=== PATIENT | female | born 1970 ===

== ENCOUNTER 2016-10-30 16:22 | Emergency (ER) | payer MEDICAID ==
[2016-10-30] MEDS ORDERED: Sodium Chloride 0.9% 1,000 ML IV ONE (17:09)
[2016-10-30 17:53] LABS: BASO # 0.1 K/uL (0.0-0.2); BASO % 0.6 % (0.0-2.0); EOS # 0.1 K/uL (0.0-0.7); EOS % 1.5 % (0.0-4.0); HEMATOCRIT 29.3 % (34.0-47.0); LYMPH % 23.3 % (20.0-40.0); MEAN CELL VOLUME 83.2 fl (81.0-99.0); MEAN CORPUSCULAR HEMOGLOBIN 26.8 pg (27.0-31.0); MEAN CORPUSCULAR HGB CONC 32.2 g/dL (33.0-37.0); MEAN PLATELET VOLUME 7.5 fl (7.2-11.7); MONO # 0.6 K/uL (0.0-0.8); MONO % 6.7 % (0.0-10.0); NEUT # 5.7 K/uL (1.8-7.0); NEUT % 67.9 % (50.0-75.0); RED CELL DISTRIBUTION WIDTH 15.2 % (11.5-14.5); WHITE BLOOD COUNT 8.4 K/uL (4.8-10.8)
[2016-10-30 18:02] LABS: ALB/GLOB RATIO 1.2 (1.0-2.1); ALKALINE PHOSPHATASE 85 U/L (38-126); ALT/SGPT 49 U/L (9-52); AST/SGOT 30 U/L (14-36); BILIRUBIN,TOTAL 0.1 mg/dl (0.2-1.3); BLOOD UREA NITROGEN 9 mg/dl (7-17); CALCIUM 8.4 mg/dL (8.4-10.2); CARBON DIOXIDE 22 mmol/L (22-30); CHLORIDE 106 mmol/L (98-107); GFR AFRICAN-AMERICAN > 60; GLUCOSE,RANDOM 96 mg/dL (65-105); LIPASE 224 U/L (23-300); POTASSIUM 3.8 MMOL/L (3.6-5.0); SODIUM 137 mmol/l (132-148); TOTAL PROTEIN 7.2 G/DL (6.3-8.2)
[2016-10-30] MEDS ORDERED: Sodium Chloride 0.9% 50 ML IV ONE (18:17)
[2016-10-30] MEDS ORDERED: Iohexol 300 100 ML IJ ONE (18:17)
[2016-10-30 18:19] LABS: RBC URINE 1455 /hpf (0-3); URINE BILIRUBIN NEGATIVE (NEGATIVE); URINE BLOOD LARGE (NEGATIVE); URINE COLOR RED (YELLOW); URINE GLUCOSE (UA) NEG (Normal); URINE KETONE NEGATIVE (NEGATIVE); URINE LEUKOCYTE ESTERASE MOD Leu/uL (Negative); URINE PROTEIN 30 mg/dL (NEGATIVE); URINE UROBILINOGEN 0.2-1.0 mg/dL (0.2-1.0); WBC URINE 54 /hpf (0-5)
[2016-10-30 18:44] LABS: PARTIAL THROMBOPLASTIN TIME 24.6 SECONDS (23.3-32.5)
[2016-10-30] MEDS ORDERED: cefTRIAXone (Rocephin) 1 gm Inj ONE (18:49)
--- NOTE | 2016-10-30 19:17 | CT ---
EXAM: CT Abdomen and Pelvis With Intravenous Contrast CLINICAL HISTORY: 46 years old, female; Signs and symptoms; Other: Abd pain vaginal bleeding x around 1 month; Prior surgery; Surgery date: 6+ months; Surgery type: B/l breast implant/ abdominoplasty 5 yrs ago. x 2001 2011; Additional info: Abd pain, diarrhea, recent travel to [place] TECHNIQUE: Axial computed tomography images of the abdomen and pelvis with intravenous contrast. This CT exam was performed using one or more of the following dose reduction techniques: automated exposure control, adjustment of the mA and/or kV according to patient size, and/or use of iterative reconstruction technique. Coronal and sagittal reformatted images were created and reviewed. CONTRAST: 98 mL of OMNIPAQUE administered intravenously. EXAM DATE/TIME: 10/30/2016 5:06 PM COMPARISON: There are no prior studies for comparison. FINDINGS: Lower thorax: There are bilateral breast implants. Heart size is normal. There are atelectatic changes in both lung bases. ABDOMEN: Liver: There is fatty infiltration of the liver. Gallbladder and bile ducts: unremarkable Pancreas: unremarkable Spleen: Spleen is unremarkable. There is an accessory spleen in the left upper quadrant. Adrenals: unremarkable Kidneys and ureters: unremarkable Stomach and bowel: Stomach is distended with food. Rotation is normal. Proximal small bowel is mildly distended. Distention decreases distally. There is fluid and air throughout the small bowel. Terminal ileum is unremarkable. Appendix is unremarkable. There is moderate enteric contents throughout the colon. There is scattered diverticulosis. Appendix: See stomach and bowel PELVIS: Bladder: unremarkable Reproductive: Uterus is enlarged. There is a heterogeneously enhancing 4.9 x 4.4 cm in fundal mass. Adnexa are unremarkable. ABDOMEN and PELVIS: Intraperitoneal space: There is no free air or free fluid. Bones/joints: There is sclerosis at the sacroiliac joints. There is sacralization of L5 on the left. There are early degenerative osseous changes. Soft tissues: Postsurgical changes in the abdominal wall. Vasculature: Vascular structures are unremarkable. Lymph nodes: There is shotty para-aortic nodes. IMPRESSION: No acute solid visceral abnormality; no bowel obstruction, no CT findings of appendicitis or diverticulitis; probable uterine fibroid Additional findings as described above.
--- NOTE | 2016-10-30 20:04 | ED PDOC ---
HPI: Female Pain Time Seen by Provider: 10/30/16 16:36 Chief Complaint (Nursing): Female Genitourinary History Per: Patient History/Exam Limitations: no limitations Additional Complaint(s): Patient presents to the ER c/o 40 days of heavy vaginal bleeding. States that for the past 2 days she has been using 2 pads/hr. She states that she saw her brazer furnace 2 weeks ago, was rx Tayo OCP with no relief, had an outpt pelvis US yesterday, but does not know the results. Reports having normal menstrual cycle lasting for 3-4days, has never had to following symptoms prior. She is currently c/o feeling weak and dizzy. She also reports diffuse burning like abdominal pain with multiple episodes of nonbloody diarrhea after she returned form a trip to [place]. Denies fever, chills, N/V, recent abx use, sick contacts , urinary symptoms. 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 Past Medical History Vital Signs: Last Vital Signs Temp 98.4 F 10/30/16 16:26 Pulse 85 10/30/16 16:26 Resp 18 10/30/16 16:26 BP 135/61 10/30/16 16:26 Pulse Ox 99 10/30/16 16:26 - Medical History PMH: No Chronic Diseases - Family History Family History: States: No Known Family Hx - Home Medications Home Medications: Ambulatory Orders Medication Instructions Recorded Ciprofloxacin HCl [Cipro] 500 mg PO BID #14 tab 10/30/16 - Allergies Allergies/Adverse Reactions: Allergies Allergy/AdvReac Type Severity Reaction Status Date / Time No Known Allergies Allergy Verified 10/30/16 16:26 Review of Systems Constitutional: Negative for: Fever, Chills, Weakness, Malaise Eyes: Negative for: Pain, Vision Change ENT: Negative for: Ear Pain, Nose Congestion, Throat Pain Cardiovascular: Negative for: Chest Pain, Palpitations, Orthopnea, Edema Respiratory: Negative for: Cough, Shortness of Breath Gastrointestinal: Positive for: Abdominal Pain, Diarrhea. Negative for: Nausea , Vomiting Genitourinary Female: Positive for: Vaginal Bleeding. Negative for: Dysuria, Frequency, Incontinence, Hematuria Musculoskeletal: Negative for: Neck Pain, Back Pain Skin: Negative for: Rash, Lesions, Jaundice Neurological: Negative for: Weakness, Numbness, Incoordination Psych: Negative for: Anxiety, Depression, Psychosis Physical Exam - Physical Exam Appears: Positive for: Well, Non-toxic, In Acute Distress (mild distress) Head Exam: Positive for: ATRAUMATIC, NORMOCEPHALIC Skin: Positive for: Normal Color, Warm, Dry ENT: Positive for: Normal ENT Inspection, Other (mucus membranes dry). Negative for: Pharyngeal Erythema, Tonsillar Exudate Neck: Positive for: Normal, Supple Cardiovascular/Chest: Positive for: Regular Rate, Rhythm, Chest Non Tender. Negative for: Edema, Gallop, JVD, Murmur Respiratory: Positive for: Normal Breath Sounds. Negative for: Decreased Breath Sounds, Accessory Muscle Use, Crackles, Rales, Rhonchi, Stridor, Wheezing Gastrointestinal/Abdominal: Positive for: Normal Exam, Bowel Sounds, Soft, Tenderness (mild lower abdominal tenderness). Negative for: Organomegaly, Mass , Distended, Guarding, Rebound Pelvic Exam: Positive for: External Exam Normal, Bimanual Exam Normal, Active Bleeding (mild ), Other (enlarged uterus on manual exam. Xuan, female technology consultant was present during the entire exam. ). Negative for: Tender W/Cervical Motion, Tender Adnexa, Tender Uterus Extremity: Positive for: Normal ROM. 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 Negative for: Motor/Sensory Deficits - Laboratory Results Result Diagrams: 10/30/16 17:35 10/30/16 17:35 - ECG O2 Sat by Pulse Oximetry: 99 Medical Decision Making Medical Decision Makin yo F presents with DUB, abdominal pain and diarrhea. Plan -Labs -US pelvic -CT A/P w/ IV contrast -UA -Stool cx, C diff -IVF -zofran and pepcid. Lab results reviewed, Hgb 9.4 Hct 29. Patient has no prior labs here in this hospital to compare to. UA noted to have (+) UTI. Rocephin 1 g IV ordered. US and CT results still pending. Patient laying in bed comfortably in no acute distress. US pelvic : FINDINGS: Uterus/cervix: Uterus measures 10.3 x 6.3 x 6.4 cm. Nabothian cysts. There is a 4.6 x 4.3 x 3.7 cm hyperechoic mass in the posterior uterine fundal myometrium with vascular flow which may be partially submucosal. Endometrium measures 6.2 mm. Right ovary: Right ovary measures 2.3 x 1.5 x 1.9 cm. Probable incidental corpus albicans Normal blood flow. Left ovary: Left ovary measures 1.3 x 1.6 x 1.4 cm. Follicles. Normal blood flow. Free fluid: No free fluid. IMPRESSION: Large posterior intramural fibroid which may be partially submucosal. 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 Dictated and Authenticated by: Marta Palma MD CT A/P w/ IV contrast: FINDINGS: Lower thorax: There are bilateral breast implants. Heart size is normal. There are atelectatic changes in both lung bases. ABDOMEN: Liver: There is fatty infiltration of the liver. Gallbladder and bile ducts: unremarkable Pancreas: unremarkable Spleen: Spleen is unremarkable. There is an accessory spleen in the left upper quadrant. Adrenals: unremarkable Kidneys and ureters: unremarkable Stomach and bowel: Stomach is distended with food. Rotation is normal. Proximal small bowel is mildly distended. Distention decreases distally. There is fluid and air throughout the small bowel. Terminal ileum is unremarkable. Appendix is unremarkable. There is moderate enteric contents throughout the colon. There is scattered diverticulosis. Appendix: See stomach and bowel PELVIS: Bladder: unremarkable Reproductive: Uterus is enlarged. There is a heterogeneously enhancing 4.9 x 4.4 cm in fundal mass. Adnexa are unremarkable. ABDOMEN and PELVIS: Intraperitoneal space: There is no free air or free fluid. Bones/joints: There is sclerosis at the sacroiliac joints. There is sacralization of L5 on the left. There are early degenerative osseous changes. Soft tissues: Postsurgical changes in the abdominal wall. Vasculature: Vascular structures are unremarkable. Lymph nodes: There is shotty para-aortic nodes. IMPRESSION: No acute solid visceral abnormality; no bowel obstruction, no CT findings of appendicitis or diverticulitis; probable uterine fibroid Additional findings as described above. Dictated By: Aniya Roche MD, MD Dictated Date/Time: 10/30/161916 Signed By: Aniya Roche MD Date Signed: 1916 On re-evaluation, patient remains awake, alert and oriented x3, in no acute distress. States that she feels well, and has no complaints at this time. Denies fever, chills, abdominal pain, nausea/vomiting, significant vaginal bleeding or any other complaints. On exam, patient is laying in bed in no acute distress. Abdomen remains soft with no tenderness. Results d/w the patient in great detail. Notified of her low Hgb, advised that she must f/u results with her pmd/brazer furnace. Based on history, exam and diagnostic studies, plan will be for outpatient f/u with pmd/brazer furnace. Patient verbalize understanding of the need for further outpatient care and follow up treatment. The patient was given the opportunity to ask any questions. Follow up with pmd/brazer furnace in 2 days without fail for re-evaluation. Return to the ER at any time for any new or worsening symptoms. Disposition - Clinical Impression Clinical Impression: DUB (dysfunctional uterine bleeding), Abdominal pain, Travelers' diarrhea - Disposition Disposition: Routine/Home Disposition Time: 20:22 Condition: STABLE Additional Instructions: Follow up with pmd/brazer furnace in 2 days without fail for re-evaluation. Return to the ER at any time for any new or worsening symptoms. Prescriptions: Ciprofloxacin HCl [Cipro] 500 mg PO BID #14 tab Instructions: Dysfunctional Uterine Bleeding (ED), Traveler's Diarrhea (ED), Abdominal Pain (ED) Forms: [facility] ED School/Work Excuse Print Language: SURINAMESE - PA / PEPPER PICKER / Resident Statement / has reviewed & agrees with the documentation as recorded.
[2016-10-30 20:33] VITALS: BP 125/80; PULSE 75; RESP 16; TEMP 97.9
[2016-10-31 09:56] VITALS: O2SAT 99
--- NOTE | 2016-10-31 10:31 | US ---
HISTORY: vag bleed x 40 days on OCP x 2 weeks COMPARISON: CT abdomen and pelvis with IV contrast performed 10/30/16. No prior ultrasound available for direct comparison. TECHNIQUE: Pelvis ultrasound FINDINGS: UTERUS: Measures 10.3 x 6.4 x 6.3 cm. Anteverted. Heterogeneous uterine echotexture limits evaluation for small masses or fibroids. 4.6 x 3.7 x 4.3 cm posterior fibroid. ENDOMETRIUM: Measures 5 mm in diameter. CERVIX: Nabothian cyst. RIGHT OVARY: Measures 2.3 x 1.9 x 1.5 cm. Blood flow is demonstrated. 5 x 4 x 3 mm indeterminate echogenic focus. LEFT OVARY: Measures 1.3 x 1.4 x 1.6 cm cm. Blood flow is demonstrated. FREE FLUID: No significant free fluid noted. OTHER FINDINGS: None. IMPRESSION: 4.6 cm posterior uterine fibroid. Indeterminate 5 x 4 x 3 mm echogenic focus within the left ovary. Preliminary impression was provided by virtual radiologic.
== END 2016-10-30 20:34 | disposition home or self-care (01) ==
LOC: H.ER 16:22
DX: R10.9 Unspecified abdominal pain (principal); R19.7 Diarrhea, unspecified; Z98.82 Breast implant status; R42 Dizziness and giddiness

== ENCOUNTER 2017-07-25 11:25 | Emergency (ER) | payer MEDICAID ==
[2017-07-25 11:44] VITALS: BP 136/73; PULSE 81; RESP 18; TEMP 99; O2SAT 96
[2017-07-25] MEDS ORDERED: Albuterol-Ipratrop 3 mg / 0.5 (3 ml) UD INH STA (12:34)
--- NOTE | 2017-07-25 12:59 | ED PDOC ---
HPI: CCC, URI, Sore Throat Time Seen by Provider: 07/25/17 11:25 Chief Complaint (Nursing): Cough, Cold, Congestion Chief Complaint (Provider): Cough, Cold, Congestion History Per: Patient History/Exam Limitations: no limitations Onset/Duration Of Symptoms: Days (x2) Current Symptoms Are (Timing): Still Present Sick Contacts (Context): Family Member(s) (son) Additional Complaint(s): 46 year old female who presents to the emergency department with a complaint of flu-like symptoms including cough, bodyaches, pleuritic chest pain, wheezing at night and fever ongoing for 2 days. Patient reported she had a recent sick contact with one of her son 4 days ago. PMD: none provided Past Medical History Reviewed: Historical Data, Nursing Documentation, Vital Signs Vital Signs: Last Vital Signs Temp 99 F 07/25/17 11:42 Pulse 81 07/25/17 11:42 Resp 18 07/25/17 11:42 BP 136/73 07/25/17 11:42 Pulse Ox 96 07/25/17 13:37 - Medical History PMH: No Chronic Diseases - Surgical History Surgical History: Denies: No Surg Hx Other surgeries: breast augmentation; abdominoplasty - Family History Family History: States: Unknown Family Hx - Social History Current smoker - smoking cessation education provided: No Alcohol: Occasional Drugs: Denies - Home Medications Home Medications: Ambulatory Orders Medication Instructions Recorded Ciprofloxacin HCl [Cipro] 500 mg PO BID #14 tab 10/30/16 Acetaminophen [Acetaminophen Extra 2 tab PO Q6 PRN #24 tablet 07/25/17 Strength] Albuterol 0.083% [Albuterol 0.083% 2.5 mg IH Q8 PRN #100 neb 07/25/17 Inhal Bridget (2.5 mg/3 ml) UD] Ibuprofen [Motrin] 600 mg PO Q8 PRN #21 tab 07/25/17 Mask, Face [Nebulizer Aerosol Mask 1 dev XX PRN PRN #1 dev 07/25/17 Adult] Nebulizer [Aeroeclipse II] 1 each MC Q8 PRN #1 each 07/25/17 Promethazine/Codeine 5 ml PO Q12 PRN #100 ml 07/25/17 [Codeine/Promethazine 10 MG/5 Ml-6.25 MG/5 Ml] Pseudoephedrine [Sudafed Tab] 60 mg PO Q6 PRN #24 tab 07/25/17 - Allergies Allergies/Adverse Reactions: Allergies Allergy/AdvReac Type Severity Reaction Status Date / Time No Known Allergies Allergy Verified 10/30/16 16:26 Review of Systems ROS Statement: Except As Marked, All Systems Reviewed And Found Negative Constitutional: Positive for: Fever, Other (bodyaches) Cardiovascular: Positive for: Chest Pain (pleuritic) Respiratory: Positive for: Cough, Wheezing Physical Exam - Reviewed Nursing Documentation Reviewed: Yes Vital Signs Reviewed: Yes - Physical Exam Appears: Positive for: Non-toxic, No Acute Distress ENT: Positive for: Normal ENT Inspection, Pharynx Is (within normal limits), TM Is/Are (clear bilaterally). Negative for: Pharyngeal Erythema, Tonsillar Exudate Cardiovascular/Chest: Positive for: Regular Rate, Rhythm, Other (reproducible chest tenderness). Negative for: Chest Non Tender Respiratory: Positive for: Decreased Breath Sounds. Negative for: Normal Breath Sounds, Respiratory Distress Gastrointestinal/Abdominal: Positive for: Normal Exam, Soft. Negative for: Tenderness Neurologic/Psych: Positive for: Alert, Oriented - Laboratory Results Urine POC: Negative - ECG O2 Sat by Pulse Oximetry: 96 (RA) Pulse Ox Interpretation: Normal - Progress ED Course And Treament: INFLUENZA A/B NEGATIVE Medical Decision Making Medical Decision Making: Initial Impression: Flu-like symptoms Initial Plan: * Urine * Duoneb 3ml INH * Tamiflu 75mg PO * Toradol 30mg IM * Influenza A B Scribe Attestation: Documented by Jeimy Rangel, acting as a scribe for Natan Wise PA-C. Provider Scribe Attestation: All medical record entries made by the Scribe were at my direction and personally dictated by me. I have reviewed the chart and agree that the record accurately reflects my personal performance of the history, physical exam, medical decision making, and the department course for this patient. I have also personally directed, reviewed, and agree with the discharge instructions and disposition. Disposition - Clinical Impression Clinical Impression: Influenza-like illness - Patient ED Disposition Is Patient to be Admitted: No - Disposition Disposition: Routine/Home Disposition Time: 13:32 Condition: FAIR Prescriptions: Acetaminophen [Acetaminophen Extra Strength] 2 tab PO Q6 PRN #24 tablet PRN Reason: Fever >100.4 F Albuterol 0.083% [Albuterol 0.083% Inhal Bridget (2.5 mg/3 ml) UD] 2.5 mg IH Q8 PRN #100 neb PRN Reason: Shortness Of Breath Ibuprofen [Motrin] 600 mg PO Q8 PRN #21 tab PRN Reason: Pain, Moderate (4-7) Mask, Face [Nebulizer Aerosol Mask Adult] 1 dev XX PRN PRN #1 dev PRN Reason: Shortness Of Breath Nebulizer [Aeroeclipse II] 1 each MC Q8 PRN #1 each PRN Reason: Shortness Of Breath Promethazine/Codeine [Codeine/Promethazine 10 MG/5 Ml-6.25 MG/5 Ml] 5 ml PO Q12 PRN #100 ml PRN Reason: Cough Pseudoephedrine [Sudafed Tab] 60 mg PO Q6 PRN #24 tab PRN Reason: Nasal Congestion Instructions: Influenza (ED) Forms: [facility] ([place]), [facility] ED School/Work Excuse
[2017-07-25] MEDS ORDERED: Albuterol-Ipratrop 3 mg / 0.5 (3 ml) UD ONE (13:13)
== END 2017-07-25 13:43 | disposition home or self-care (01) ==
LOC: H.ER 11:25
DX: J11.1 Influenza due to unidentified influenza virus with other respiratory manifestations (principal)
CPT/HCPCS: 81025; 87804; 94640; 96372; 99281; J1885

== ENCOUNTER 2018-07-16 14:14 | Inpatient (IN) | payer MEDICAID ==
[2018-07-16] MEDS ORDERED: Morphine 4 MG/ML VIAL IVP STA (15:06)
[2018-07-16] MEDS ORDERED: Sodium Chloride 0.9% 1,000 ML IV STA (15:06)
[2018-07-16] MEDS ORDERED: Morphine 4 MG/ML VIAL ONE (15:20)
--- NOTE | 2018-07-16 15:22 | ED PDOC ---
HPI: Abdomen Time Seen by Provider: 07/16/18 14:36 Chief Complaint (Nursing): Abdominal Pain Chief Complaint (Provider): Abdominal Pain History Per: Patient History/Exam Limitations: no limitations Onset/Duration Of Symptoms: Days (past two weeks) Current Symptoms Are (Timing): Still Present Additional Complaint(s): Patient is a 47 y/o female with no significant PMHx who presents to the ED for evaluation of progressively worsening right lower quadrant abdominal pain radiating to the back for the past two weeks. Patient reports also feeling constipation, claiming her last bowel movement, yesterday, was hard. Patient states she has been using an antipyretic. Patient denies nausea, vomiting, chills, fever, vaginal bleeding or discharge, and urinary symptoms. Of note, patient's last menstrual period was two months ago. Last PO intake was at 1200 today. PCP: Kevin Perez Past Medical History Reviewed: Historical Data, Nursing Documentation, Vital Signs Vital Signs: Last Vital Signs Temp 97.3 F L 07/16/18 14:17 Pulse 85 07/16/18 14:17 Resp 18 07/16/18 14:17 BP 141/89 07/16/18 14:17 Pulse Ox 96 07/16/18 14:17 - Medical History PMH: No Chronic Diseases - Surgical History Other surgeries: liposuction (5-6 years ago). D&C (2-3 years ago) - Family History Family History: States: No Known Family Hx - Home Medications Home Medications: Ambulatory Orders Medication Instructions Recorded Ciprofloxacin HCl [Cipro] 500 mg PO BID #14 tab 10/30/16 Acetaminophen [Acetaminophen Extra 2 tab PO Q6 PRN #24 tablet 07/25/17 Strength] Albuterol 0.083% [Albuterol 0.083% 2.5 mg IH Q8 PRN #100 neb 07/25/17 Inhal Bridget (2.5 mg/3 ml) UD] Ibuprofen [Motrin] 600 mg PO Q8 PRN #21 tab 07/25/17 Mask, Face [Nebulizer Aerosol Mask 1 dev XX PRN PRN #1 dev 07/25/17 Adult] Nebulizer [Aeroeclipse II] 1 each MC Q8 PRN #1 each 07/25/17 Promethazine/Codeine 5 ml PO Q12 PRN #100 ml 07/25/17 [Codeine/Promethazine 10 MG/5 Ml-6.25 MG/5 Ml] Pseudoephedrine [Sudafed Tab] 60 mg PO Q6 PRN #24 tab 07/25/17 - Allergies Allergies/Adverse Reactions: Allergies Allergy/AdvReac Type Severity Reaction Status Date / Time No Known Allergies Allergy Verified 07/16/18 14:21 Review of Systems ROS Statement: Except As Marked, All Systems Reviewed And Found Negative Constitutional: Negative for: Fever, Chills Gastrointestinal: Positive for: Abdominal Pain (right lower quadrant), Constipation. Negative for: Nausea, Vomiting Genitourinary Female: Negative for: Dysuria, Incontinence, Hematuria, Vaginal Discharge, Vaginal Bleeding Musculoskeletal: Positive for: Back Pain Physical Exam - Reviewed Nursing Documentation Reviewed: Yes Vital Signs Reviewed: Yes - Physical Exam Appears: Positive for: No Acute Distress Head Exam: Positive for: ATRAUMATIC, NORMAL INSPECTION, NORMOCEPHALIC Skin: Positive for: Normal Color, Warm, Dry Eye Exam: Positive for: EOMI, Normal appearance, PERRL ENT: Positive for: Normal ENT Inspection Neck: Positive for: Normal, Painless ROM, Supple Cardiovascular/Chest: Positive for: Regular Rate, Rhythm Respiratory: Positive for: Normal Breath Sounds. Negative for: Accessory Muscle Use, Respiratory Distress Gastrointestinal/Abdominal: Positive for: Normal Exam, Tenderness (moderate right lower quadrant ). Negative for: Guarding Back: Positive for: Normal Inspection. Negative for: L CVA Tenderness, R CVA Tenderness, Vertebral Tenderness, Other (obturator and psoas sign) Extremity: Positive for: Normal ROM. Negative for: Pedal Edema, Deformity Neurologic/Psych: Positive for: Alert, Oriented. Negative for: Motor/Sensory Deficits - Laboratory Results Result Diagrams: 07/16/18 15:49 07/16/18 15:49 - ECG O2 Sat by Pulse Oximetry: 96 (RA) Pulse Ox Interpretation: Normal Medical Decision Making Medical Decision Making: Time: 1506 Impression: Right Lower Quadrant Abdominal Pain Plan: Type and Screen CT Abd & Pelvis IV Contrast CMP Lipase NPO Diet Urine CBC PTT PT/INR Morphine 2 mg IVP IV Fluids Zofran 4 mg IVP IV Insertion UA 1730 WBC 16.2 VBG ordered. On re-evaluation, pt. reports improvement in pain but still present. RLQ tenderness but no guarding. 1904 CT Abdomen and Pelvis FINDINGS: LUNG BASES: The lung bases appear clear. No pleural effusions are seen. There are bilateral breast implants. LIVER: Unremarkable. GALLBLADDER AND BILE DUCTS: The gallbladder appears within normal limits. No radioopaque gallstones are seen. No biliary ductal dilatation is evident. PANCREAS: Unremarkable. SPLEEN: Unremarkable. ADRENAL GLANDS: Unremarkable. KIDNEYS, URETERS, AND BLADDER: The kidneys appear within normal limits. There is no hydronephrosis or hydroureter. No urinary calculi are seen. Heterogeneous appearance to the uterus. STOMACH AND BOWEL: Unremarkable appearance of the stomach and bowel. No evidence of bowel obstruction. No evidence suggesting enteritis or colitis. APPENDIX: There is distention of the appendix which is poorly delineated with some fluid at the right flank and infiltration of the fat in the region of the appendix all suspicious for appendicitis. Close clinical correlation is advised. PERITONEUM: No free fluid. No free air. LYMPH NODES: No lymphadenopathy is evident. REPRODUCTIVE: Unremarkable as visualized. VASCULATURE: No evidence of abdominal aortic aneurysm. BONES: No aggressive appearing osseous lesion. No acute osseous pathology evident. IMPRESSION: Inflammatory changes and fluid and infiltration of the fat in the region of the appendix which is poorly delineated suspicious for appendicitis. Close clinical correlation is advised. Bilateral breast implants. Heterogeneous appearance to the uterus. 1908 Case d/w Eugene GUZMAN who requests Dr. Mc for surgery. Case d/w instructor adjunct surgical technician who will evaluate pt. in ED and requests Zosyn IV to be given. Scribe Attestation: Documented by Ant Ferrer, acting as a scribe for AMBER Wynn. Provider Scribe Attestation: All medical record entries made by the Scribe were at my direction and perso nakia dictated by me. I have reviewed the chart and agree that the record accurately reflects my personal performance of the history, physical exam, medical decision making, and the department course for this patient. I have also personally directed, reviewed, and agree with the discharge instructions and disposition. Disposition - Clinical Impression Clinical Impression: Appendicitis - Patient ED Disposition Is Patient to be Admitted: Yes - Disposition Disposition Time: 19:45 Condition: FAIR Forms: [facility] ([place])
[2018-07-16 16:05] LABS: BASO % 0.2 % (0.0-2.0); EOS # 0.2 K/uL (0.0-0.7); EOS % 1.1 % (0.0-4.0); HEMOGLOBIN 12.2 g/dL (12.0-16.0); LYMPH # 1.8 K/uL (1.0-4.3); LYMPH % 10.9 % (20.0-40.0); MEAN CORPUSCULAR HEMOGLOBIN 30.3 pg (27.0-31.0); MEAN CORPUSCULAR HGB CONC 33.3 g/dL (33.0-37.0); MEAN PLATELET VOLUME 7.4 fl (7.2-11.7); MONO # 0.5 K/uL (0.0-0.8); MONO % 3.4 % (0.0-10.0); NEUT # 13.7 K/uL (1.8-7.0); NEUT % 84.4 % (50.0-75.0); RBC 4.02 Mil/uL (3.80-5.20); RED CELL DISTRIBUTION WIDTH 13.9 % (11.5-14.5); WHITE BLOOD COUNT 16.2 K/uL (4.8-10.8)
[2018-07-16 16:13] LABS: PROTHROMBIN TIME 11.8 Seconds (9.8-13.1)
[2018-07-16 16:14] LABS: ALB/GLOB RATIO 1.2 (1.0-2.1); ALBUMIN 4.2 g/dL (3.5-5.0); ALT/SGPT 32 U/L (9-52); AST/SGOT 32 U/L (14-36); BLOOD UREA NITROGEN 14 mg/dl (7-17); CALCIUM 9.2 mg/dL (8.4-10.2); GFR NON-AFRICAN AMERICAN > 60; LIPASE 84 U/L (23-300)
[2018-07-16 16:15] LABS: PARTIAL THROMBOPLASTIN TIME 33.9 Seconds (25.6-37.1)
[2018-07-16 16:16] LABS: SQUAMOUS EPITHIAL 6 /hpf (0-5); URINE BACTERIA RARE (<OCC); URINE BILIRUBIN NEGATIVE (NEGATIVE); URINE CLARITY CLOUDY (Clear); URINE COLOR YELLOW (YELLOW); URINE GLUCOSE (UA) NEG (NEGATIVE); URINE LEUKOCYTE ESTERASE NEG Leu/uL (Negative); URINE PROTEIN NEGATIVE (NEGATIVE); URINE UROBILINOGEN 0.2-1.0 mg/dL (0.2-1.0)
[2018-07-16 16:17] LABS: URINE BLOOD SMALL (NEGATIVE)
[2018-07-16] MEDS ORDERED: Iohexol 300 100 ML IJ ONE (18:00)
[2018-07-16] MEDS ORDERED: Sodium Chloride 0.9% 50 ML IV ONE (18:01)
[2018-07-16 18:54] LABS: VENOUS BLOOD GAS BASE EXCESS 1.2 mmol/L (0.0-2.0); VENOUS BLOOD GAS PCO2 50 mmHg (40-60); VENOUS BLOOD GAS PO2 25 mm/Hg (30-55); VENOUS BLOOD PH 7.35 (7.32-7.43)
[2018-07-16] MEDS ORDERED: Piperacillin/Tazobact 3.375 GM in Sodium Chloride 0.9% 100 ML IVPB STA (19:32)
[2018-07-16] MEDS ORDERED: Piperacillin/Tazobact 3.375 gm Inj IVPB ONE (20:01)
[2018-07-16] MEDS ORDERED: Morphine 4 MG/ML VIAL IVP PRN ×2 (20:05)
--- NOTE | 2018-07-16 20:16 | CP.PCM.CON ---
History of Present Illness - History of Present Illness History of Present Illness: Surgery consult note for Dr. Elder, covering for Dr. Mc Pt is a 47F with 1 day of right lower and upper quadrant abdominal pain. Patient states that it started last night and got worse this AM so she came to the ER. Patient reports constipation with last BM yesterday that was hard in consistency, but denies any nausea, vomiting, diarrhea, fever, chest pain, SOB, dysuria, hematuria, or any other symptoms. Nothing alleviated or exacerbated the pain, she has had BL crampy lower abdominal pain 2 months ago but no episodes similar to the current one, she denies any sick contacts. One brother of colon cancer at the age of 33 and another brother of gastric cancer in his 50's but patient denies any prior colonoscopy PMH: anemia, menopause (current) PSH: , abdominoplasty, tubal ligation, cervical cerclage, BL breast implants ALL: pollen Social: denies all tobacco, alcohol, and drug use Review of Systems - Review of Systems All systems: reviewed and no additional remarkable complaints except (as per HPI) Past Patient History - Past Medical History & Family History Past Medical History?: Yes Past Family History: Reviewed and not pertinent - Past Social History Smoking Status: Never Smoked Alcohol: None Drugs: Denies Home Situation {Lives}: With Family - HEMATOLOGICAL/ONCOLOGICAL Hx Anemia: Yes - PSYCHIATRIC Hx Substance Use: No - SURGICAL HISTORY Hx Section: Yes Hx Tubal Ligation: Yes Other/Comment: BREAST AUGMENTATION. abdominoplasty. cervical cerclage - ANESTHESIA Hx Anesthesia: Yes Hx Anesthesia Reactions: No Meds Allergies/Adverse Reactions: Allergies Allergy/AdvReac Type Severity Reaction Status Date / Time No Known Allergies Allergy Verified 07/16/18 14:21 - Medications Medications: Current Medications Piperacillin Sod/Tazobactam (Sod 3.375 gm/ Sodium Chloride) 100 mls @ 100 mls/hr IVPB STAT STA; Protocol Stop: 07/16/18 20:31 Last Admin: 07/16/18 20:05 Dose: 100 mls/hr Piperacillin Sod/Tazobactam (Sod 3.375 gm/ Sodium Chloride) 100 mls @ 100 mls/hr IVPB Q6H [facility]; Protocol Lactated Ringer's (Lactated Ringer's) 1,000 mls @ 125 mls/hr IV .Q8H [facility] Stop: 07/18/18 20:16 Morphine Sulfate (Morphine) 2 mg IVP Q4 PRN PRN Reason: Pain, moderate (4-7) Morphine Sulfate (Morphine) 4 mg IVP Q4 PRN PRN Reason: Pain, severe (8-10) Physical Exam - Constitutional Appears: Well, Non-toxic, No Acute Distress - Head Exam Head Exam: ATRAUMATIC, NORMOCEPHALIC - Eye Exam Eye Exam: Normal appearance. absent: Conjunctival injection, Scleral icterus - ENT Exam ENT Exam: Mucous Membranes Moist, Normal Oropharynx - Respiratory Exam Respiratory Exam: NORMAL BREATHING PATTERN. absent: Accessory Muscle Use, Respiratory Distress - Cardiovascular Exam Cardiovascular Exam: RRR - GI/Abdominal Exam GI & Abdominal Exam: Tenderness (moderate RLQ tenderness to palpation, mild RUQ tenderness). absent: Distended, Rebound Additional comments: rovsings sign positive - Extremities Exam Extremities exam: Positive for: pedal pulses present. Negative for: calf tenderness, pedal edema - Back Exam Back exam: CVA tenderness (L), CVA tenderness (R) - Neurological Exam Neurological exam: Alert, Oriented x3 - Psychiatric Exam Psychiatric exam: Anxious, Normal Affect - Skin Skin Exam: Dry, Normal Color, Warm Results - Vital Signs Recent Vital Signs: Last Vital Signs Temp 97.3 F L 07/16/18 14:17 Pulse 85 07/16/18 14:17 Resp 18 07/16/18 14:17 BP 141/89 07/16/18 14:17 Pulse Ox 96 07/16/18 20:09 - Labs Result Diagrams: 07/16/18 15:49 07/16/18 15:49 Labs: Laboratory Results - last 24 hr 07/16/18 07/16/18 07/16/18 15:49 15:49 15:49 WBC 16.2 H D RBC 4.02 Hgb 12.2 D Hct 36.5 MCV 91.0 D MCH 30.3 MCHC 33.3 RDW 13.9 Plt Count 292 MPV 7.4 Neut % (Auto) 84.4 H Lymph % (Auto) 10.9 L [place] % (Auto) 3.4 Eos % (Auto) 1.1 Baso % (Auto) 0.2 Neut # (Auto) 13.7 H Lymph # (Auto) 1.8 [place] # (Auto) 0.5 Eos # (Auto) 0.2 Baso # (Auto) 0.0 PT 11.8 INR 1.0 APTT 33.9 pO2 VBG pH VBG pCO2 VBG HCO3 VBG Total CO2 VBG O2 Sat (Calc) VBG Base Excess VBG Potassium Glucose Lactate FiO2 Sodium 139 Potassium 3.6 Chloride 96 L Carbon Dioxide 28 Anion Gap 19 BUN 14 Creatinine 0.5 L Est GFR ( Amer) > 60 Est GFR (Non-Af Amer) > 60 Random Glucose 92 Calcium 9.2 Total Bilirubin 0.3 AST 32 ALT 32 Alkaline Phosphatase 87 Total Protein 7.7 Albumin 4.2 Globulin 3.5 Albumin/Globulin Ratio 1.2 Lipase 84 Venous Blood Potassium Urine Color Urine Clarity Urine pH Ur Specific [place] Urine Protein Urine Glucose (UA) Urine Ketones Urine Blood Urine Nitrate Urine Bilirubin Urine Urobilinogen Ur Leukocyte Esterase Urine RBC (Auto) Urine Microscopic WBC Ur Squamous Epith Cells Urine Bacteria Blood Type Antibody Screen BBK History Checked 07/16/18 07/16/18 07/16/18 15:49 15:49 18:45 WBC RBC Hgb Hct MCV MCH MCHC RDW Plt Count MPV Neut % (Auto) Lymph % (Auto) [place] % (Auto) Eos % (Auto) Baso % (Auto) Neut # (Auto) Lymph # (Auto) [place] # (Auto) Eos # (Auto) Baso # (Auto) PT INR APTT pO2 25 L VBG pH 7.35 VBG pCO2 50 VBG HCO3 24.3 VBG Total CO2 29.1 H VBG O2 Sat (Calc) 49.7 VBG Base Excess 1.2 VBG Potassium 3.6 Glucose 82 Lactate 1.3 FiO2 21.0 Sodium 134.0 Potassium Chloride 103.0 Carbon Dioxide Anion Gap BUN Creatinine Est GFR ( Amer) Est GFR (Non-Af Amer) Random Glucose Calcium Total Bilirubin AST ALT Alkaline Phosphatase Total Protein Albumin Globulin Albumin/Globulin Ratio Lipase Venous Blood Potassium 3.6 Urine Color Yellow Urine Clarity Cloudy Urine pH 5.0 Ur Specific [place] 1.024 Urine Protein Negative Urine Glucose (UA) Neg Urine Ketones Negative Urine Blood Small Urine Nitrate Negative Urine Bilirubin Negative Urine Urobilinogen 0.2-1.0 Ur Leukocyte Esterase Neg Urine RBC (Auto) 5 H Urine Microscopic WBC 1 Ur Squamous Epith Cells 6 H Urine Bacteria Rare Blood Type O POSITIVE Antibody Screen Negative BBK History Checked Patient has bt - Imaging and Cardiology CT scan - abdomen Status: Image reviewed by me, Report reviewed by me CT scan - pelvis Status: Image reviewed by me, Report reviewed by me Assessment & Plan - Assessment and Plan (Free Text) Assessment: 47F with RLQ pain with clinical exam and CT findings suspicious for acute appendicitis Plan: trend CBC NPO IVF PRN pain and nausea medication IV antibiotics OR in the AM for laparoscopic appendectomy Discussed with Jerrod, who agrees with above Suri Pritchett, PGY2
[2018-07-16] MEDS: Lactated Ringer's 1,000 ML IV SCH (21:18)
[2018-07-16 22:05] LABS: BASO # 0.1 K/uL (0.0-0.2); BASO % 0.6 % (0.0-2.0); EOS # 0.1 K/uL (0.0-0.7); EOS % 0.6 % (0.0-4.0); HEMOGLOBIN 12.1 g/dL (12.0-16.0); LYMPH # 2.1 K/uL (1.0-4.3); LYMPH % 12.1 % (20.0-40.0); MEAN CELL VOLUME 91.1 fl (81.0-99.0); MEAN CORPUSCULAR HEMOGLOBIN 30.5 pg (27.0-31.0); MEAN CORPUSCULAR HGB CONC 33.5 g/dL (33.0-37.0); MEAN PLATELET VOLUME 7.5 fl (7.2-11.7); MONO # 0.6 K/uL (0.0-0.8); MONO % 3.7 % (0.0-10.0); NEUT # 14.3 K/uL (1.8-7.0); NRBC % 0.1 % (0.0-0.0); RBC 3.98 Mil/uL (3.80-5.20); WHITE BLOOD COUNT 17.2 K/uL (4.8-10.8)
[2018-07-16 22:19] LABS: BLOOD UREA NITROGEN 10 mg/dl (7-17); CALCIUM 8.8 mg/dL (8.4-10.2); GFR NON-AFRICAN AMERICAN > 60
[2018-07-17] MEDS: Piperacillin/Tazobact 3.375 GM in Sodium Chloride 0.9% 100 ML IVPB SCH ×4 (01:41→21:15)
[2018-07-17] MEDS: Lactated Ringer's 1,000 ML IV SCH ×2 (04:15→05:32)
--- NOTE | 2018-07-17 07:38 | CP.PCM.HP ---
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 no f/c, n/v/d at present w/ rlq pain. bw noted. imaging and consults reviewed. for or today. no med/surg hx. denies breathing/bleeding/anesthesia problems before. has been npo and on ivf. Present on Admission - Present on Admission Any Indicators Present on Admission: No Review of Systems - Gastrointestinal Gastrointestinal: As Per HPI, Abdominal Pain, Nausea, Vomiting Past Patient History - Past Medical History & Family History Past Medical History?: Yes - Past Social History Smoking Status: Never Smoked - CARDIAC Hx Cardiac Disorders: No - PULMONARY Hx Respiratory Disorders: No - NEUROLOGICAL Hx Neurological Disorder: No - HEENT Hx HEENT Problems: No - RENAL Hx Chronic Kidney Disease: No - ENDOCRINE/METABOLIC Hx Endocrine Disorders: No - HEMATOLOGICAL/ONCOLOGICAL Hx Blood Disorders: Yes Hx Anemia: Yes - INTEGUMENTARY Hx Dermatological Problems: No - MUSCULOSKELETAL/RHEUMATOLOGICAL Hx Musculoskeletal Disorders: No Hx Falls: No - GASTROINTESTINAL Hx Gastrointestinal Disorders: No - GENITOURINARY/GYNECOLOGICAL Hx Genitourinary Disorders: No - PSYCHIATRIC Hx Psychophysiologic Disorder: No Hx Substance Use: No - SURGICAL HISTORY Hx Section: Yes Hx Tubal Ligation: Yes Other/Comment: BREAST AUGMENTATION. abdominoplasty. cervical cerclage. B/L breast implants - ANESTHESIA Hx Anesthesia: Yes Hx Anesthesia Reactions: No Meds Home Medications: Home Medication List Medication Instructions Recorded Confirmed Type oxyCODONE/Acetaminophen [Percocet 1 tab PO Q4 PRN #10 tab 07/17/18 Rx 5/325 mg Tab] Allergies/Adverse Reactions: Allergies Allergy/AdvReac Type Severity Reaction Status Date / Time No Known Allergies Allergy Verified 07/16/18 14:21 Physical Exam - Constitutional Appears: Well, Non-toxic, No Acute Distress - Head Exam Head Exam: ATRAUMATIC, NORMAL INSPECTION, NORMOCEPHALIC - Eye Exam Eye Exam: EOMI, Normal appearance, PERRL Pupil Exam: NORMAL ACCOMODATION, PERRL - ENT Exam ENT Exam: Mucous Membranes Moist, Normal Exam - Neck Exam Neck exam: Positive for: Normal Inspection - Respiratory Exam Respiratory Exam: Clear to Auscultation Bilateral, NORMAL BREATHING PATTERN - Cardiovascular Exam Cardiovascular Exam: REGULAR RHYTHM, RRR, +S1, +S2 - GI/Abdominal Exam GI & Abdominal Exam: Normal Bowel Sounds, Soft, Tenderness Additional comments: rlq - Extremities Exam Extremities exam: Positive for: full ROM, normal capillary refill, normal inspection, pedal pulses present - Back Exam Back exam: NORMAL INSPECTION - Neurological Exam Neurological exam: Alert, CN II-XII Intact, Normal Gait, Oriented x3, Reflexes Normal - Psychiatric Exam Psychiatric exam: Normal Affect, Normal Mood - Skin Skin Exam: Dry, Intact, Normal Color, Warm Results - Vital Signs Recent Vital Signs: Last Vital Signs Temp 98.3 F 07/17/18 00:49 Pulse 86 07/17/18 00:49 Resp 18 07/17/18 00:49 BP 110/65 07/17/18 00:49 Pulse Ox 98 07/17/18 00:49 - Labs Result Diagrams: 07/16/18 21:55 07/16/18 21:55 Labs: Laboratory Results - last 24 hr 07/16/18 07/16/18 07/16/18 15:49 15:49 15:49 WBC 16.2 H D RBC 4.02 Hgb 12.2 D Hct 36.5 MCV 91.0 D MCH 30.3 MCHC 33.3 RDW 13.9 Plt Count 292 MPV 7.4 Neut % (Auto) 84.4 H Lymph % (Auto) 10.9 L [place] % (Auto) 3.4 Eos % (Auto) 1.1 Baso % (Auto) 0.2 Neut # (Auto) 13.7 H Lymph # (Auto) 1.8 [place] # (Auto) 0.5 Eos # (Auto) 0.2 Baso # (Auto) 0.0 PT 11.8 INR 1.0 APTT 33.9 pO2 VBG pH VBG pCO2 VBG HCO3 VBG Total CO2 VBG O2 Sat (Calc) VBG Base Excess VBG Potassium Glucose Lactate FiO2 Sodium 139 Potassium 3.6 Chloride 96 L Carbon Dioxide 28 Anion Gap 19 BUN 14 Creatinine 0.5 L Est GFR ( Amer) > 60 Est GFR (Non-Af Amer) > 60 Random Glucose 92 Calcium 9.2 Total Bilirubin 0.3 AST 32 ALT 32 Alkaline Phosphatase 87 Total Protein 7.7 Albumin 4.2 Globulin 3.5 Albumin/Globulin Ratio 1.2 Lipase 84 Venous Blood Potassium Urine Color Urine Clarity Urine pH Ur Specific [place] Urine Protein Urine Glucose (UA) Urine Ketones Urine Blood Urine Nitrate Urine Bilirubin Urine Urobilinogen Ur Leukocyte Esterase Urine RBC (Auto) Urine Microscopic WBC Ur Squamous Epith Cells Urine Bacteria Blood Type Antibody Screen BBK History Checked 07/16/18 07/16/18 07/16/18 15:49 15:49 18:45 WBC RBC Hgb Hct MCV MCH MCHC RDW Plt Count MPV Neut % (Auto) Lymph % (Auto) [place] % (Auto) Eos % (Auto) Baso % (Auto) Neut # (Auto) Lymph # (Auto) [place] # (Auto) Eos # (Auto) Baso # (Auto) PT INR APTT pO2 25 L VBG pH 7.35 VBG pCO2 50 VBG HCO3 24.3 VBG Total CO2 29.1 H VBG O2 Sat (Calc) 49.7 VBG Base Excess 1.2 VBG Potassium 3.6 Glucose 82 Lactate 1.3 FiO2 21.0 Sodium 134.0 Potassium Chloride 103.0 Carbon Dioxide Anion Gap BUN Creatinine Est GFR ( Amer) Est GFR (Non-Af Amer) Random Glucose Calcium Total Bilirubin AST ALT Alkaline Phosphatase Total Protein Albumin Globulin Albumin/Globulin Ratio Lipase Venous Blood Potassium 3.6 Urine Color Yellow Urine Clarity Cloudy Urine pH 5.0 Ur Specific [place] 1.024 Urine Protein Negative Urine Glucose (UA) Neg Urine Ketones Negative Urine Blood Small Urine Nitrate Negative Urine Bilirubin Negative Urine Urobilinogen 0.2-1.0 Ur Leukocyte Esterase Neg Urine RBC (Auto) 5 H Urine Microscopic WBC 1 Ur Squamous Epith Cells 6 H Urine Bacteria Rare Blood Type O POSITIVE Antibody Screen Negative BBK History Checked Patient has bt 07/16/18 07/16/18 21:55 21:55 WBC 17.2 H RBC 3.98 Hgb 12.1 Hct 36.2 MCV 91.1 MCH 30.5 MCHC 33.5 RDW 14.0 Plt Count 300 MPV 7.5 Neut % (Auto) 83.0 H Lymph % (Auto) 12.1 L [place] % (Auto) 3.7 Eos % (Auto) 0.6 Baso % (Auto) 0.6 Neut # (Auto) 14.3 H Lymph # (Auto) 2.1 [place] # (Auto) 0.6 Eos # (Auto) 0.1 Baso # (Auto) 0.1 PT INR APTT pO2 VBG pH VBG pCO2 VBG HCO3 VBG Total CO2 VBG O2 Sat (Calc) VBG Base Excess VBG Potassium Glucose Lactate FiO2 Sodium 138 Potassium 3.8 Chloride 97 L Carbon Dioxide 27 Anion Gap 18 BUN 10 Creatinine 0.5 L Est GFR ( Amer) > 60 Est GFR (Non-Af Amer) > 60 Random Glucose 96 Calcium 8.8 Total Bilirubin AST ALT Alkaline Phosphatase Total Protein Albumin Globulin Albumin/Globulin Ratio Lipase Venous Blood Potassium Urine Color Urine Clarity Urine pH Ur Specific [place] Urine Protein Urine Glucose (UA) Urine Ketones Urine Blood Urine Nitrate Urine Bilirubin Urine Urobilinogen Ur Leukocyte Esterase Urine RBC (Auto) Urine Microscopic WBC Ur Squamous Epith Cells Urine Bacteria Blood Type Antibody Screen BBK History Checked Assessment & Plan (1) DVT prophylaxis Assessment and Plan: scd and ae hose ambulation Status: Acute (2) Appendicitis Assessment and Plan: pain control med cleared for or once cxr completed surgery ivf, npo Status: Acute Decision To Admit - Pt Status Changed To: Hospital Disposition Of: Inpatient - Admit Certification Admit to Inpatient:: After my assessment, the patient will require hospitalization for at least two midnights. This is because of the severity of symptoms shown, intensity of services needed, and/or the medical risk in this patient being treated as an outpatient. - . Bed Request Type: Med/Surg Admitting Physician: Rohit Knowles
[2018-07-17 08:37] LABS: BLOOD UREA NITROGEN 10 mg/dl (7-17); CALCIUM 8.4 mg/dL (8.4-10.2); GFR NON-AFRICAN AMERICAN > 60
[2018-07-17 08:47] LABS: BASO # 0.1 K/uL (0.0-0.2); BASO % 0.5 % (0.0-2.0); EOS # 0.2 K/uL (0.0-0.7); EOS % 1.8 % (0.0-4.0); HEMOGLOBIN 10.7 g/dL (12.0-16.0); LYMPH # 2.1 K/uL (1.0-4.3); LYMPH % 19.7 % (20.0-40.0); MEAN CORPUSCULAR HEMOGLOBIN 31.1 pg (27.0-31.0); MEAN CORPUSCULAR HGB CONC 34.6 g/dL (33.0-37.0); MEAN PLATELET VOLUME 7.3 fl (7.2-11.7); MONO # 0.6 K/uL (0.0-0.8); MONO % 5.2 % (0.0-10.0); NEUT % 72.8 % (50.0-75.0); NRBC % 0.1 % (0.0-0.0); RBC 3.45 Mil/uL (3.80-5.20); WHITE BLOOD COUNT 10.9 K/uL (4.8-10.8)
[2018-07-17] MEDS: Potassium Chloride 20 MEQ in Lactated Ringer's 1,000 ML IV SCH ×4 (10:19→23:10)
[2018-07-17] MEDS ORDERED: Propofol 10 mg/ml Inj (20 ML) ONE (10:23)
[2018-07-17] MEDS ORDERED: Succinylcholine Chloride 20 mg/ml Syr (5 ml) IV ONE (10:24)
[2018-07-17] MEDS ORDERED: Rocuronium 10 mg/ml (5 ml) ONE (10:24)
[2018-07-17] MEDS ORDERED: Midazolam 2 MG/2 ML VIAL ONE (10:24)
[2018-07-17] MEDS ORDERED: Lactated Ringer's 1,000 ML IV ONE ×3 (10:30→12:34)
[2018-07-17] MEDS ORDERED: Bupivacaine 0.5% Inj(30mL) ONE (10:34)
--- NOTE | 2018-07-17 10:51 | CARD ---
APPROVED REPORT Date of service: 07/16/2018 EKG Measurement Heart [id number] <Conclusion> Normal sinus rhythm Normal Electrocardiogram
[2018-07-17] MEDS ORDERED: Dexamethasone 4 mg/1 ml ONE (11:14)
[2018-07-17] MEDS ORDERED: Neostigmine 1:1000 (1 mg/ml) Inj ONE (11:22)
--- NOTE | 2018-07-17 11:27 | CT ---
Date of service: 07/16/2018 PROCEDURE: CT Abdomen and Pelvis with contrast HISTORY: RLQ abd pain COMPARISON: 10/30/2016 TECHNIQUE: Contrast dose: Radiation dose: Total exam DLP = 790.63 mGy-cm. This CT exam was performed using one or more of the following dose reduction techniques: Automated exposure control, adjustment of the mA and/or kV according to patient size, and/or use of iterative reconstruction technique. FINDINGS: LOWER THORAX: Bilateral breast augmentation. LIVER: Unremarkable. No gross lesion or ductal dilatation. GALLBLADDER AND BILE DUCTS: Unremarkable. PANCREAS: Unremarkable. No gross lesion or ductal dilatation. SPLEEN: Unremarkable. ADRENALS: Unremarkable. No mass. KIDNEYS AND URETERS: Unremarkable. No hydronephrosis. No solid mass. VASCULATURE: Unremarkable. No aortic aneurysm. No aortic atherosclerotic calcification or mural plaque present. BOWEL: Unremarkable. No obstruction. No gross mural thickening. APPENDIX: Periappendiceal infiltration with appendiceal thickening and enhancement consistent with acute appendicitis. Small Juni periappendiceal lymph nodes. PERITONEUM: Unremarkable. No free fluid. No free air. LYMPH NODES: Unremarkable. No enlarged lymph nodes. BLADDER: Unremarkable. REPRODUCTIVE: Leiomyomatous uterus. BONES: No acute fracture. OTHER FINDINGS: None. IMPRESSION: Acute appendicitis.
[2018-07-17] MEDS ORDERED: Bupivacaine 0.5% 50 ML IJ ONE (11:29)
[2018-07-17] MEDS ORDERED: HYDROmorphone 0.5 mg/0.5 ml ISec IVP PRN (11:56)
--- NOTE | 2018-07-17 11:58 | PCM.SURG1 ---
Surgeon's Initial Post Op Note - Surgeon's Notes Surgeon: Dr. Elder Alarm Signal Operator: PGY2, Vanessa PGY1 Type of Anesthesia: General Endo Pre-Operative Diagnosis: Acute Appendicitis Operative Findings: Inflammed appendix. multiple adhesions to the anterior abodminal wall Post-Operative Diagnosis: Acute Appendicitis Operation Performed: 1. Dudley Insertion. 2. Laparoscopic Appendectomy. 3. Laparoscopic lysis of adhesions Specimen/Specimens Removed: Appendix Estimated Blood Loss: EBL {In ML}: 5 Post-Op Condition: Good Date of Surgery/Procedure: 07/17/18 Time of Surgery/Procedure: 11:58
--- NOTE | 2018-07-17 16:44 | RAD ---
HISTORY: preop, appendicitis COMPARISON: None available. TECHNIQUE: Chest, one view. FINDINGS: Examination limited by habitus. LUNGS: No focal consolidation. Please note that chest x-ray has limited sensitivity for the detection of pulmonary masses. PLEURA: No significant pleural effusion identified. No definite pneumothorax . CARDIOVASCULAR: Heart size appears within normal limits. No significant atherosclerotic calcification present. OSSEOUS STRUCTURES: No acute osseous abnormality identified. VISUALIZED UPPER ABDOMEN: Unremarkable. OTHER FINDINGS: None. IMPRESSION: No focal consolidation.
[2018-07-18] MEDS: Potassium Chloride 20 MEQ in Lactated Ringer's 1,000 ML IV SCH (01:20)
[2018-07-18] MEDS: Piperacillin/Tazobact 3.375 GM in Sodium Chloride 0.9% 100 ML IVPB SCH (03:06)
--- NOTE | 2018-07-18 08:19 | CP.PCM.PN ---
<Saroj LandryCam - Last Filed: 07/18/18 08:17> Subjective - Date & Time of Evaluation Date of Evaluation: 07/18/18 Time of Evaluation: 08:17 - Subjective Subjective: Surgery: Dr. Elder Patient doing well. Complains of mild pain to the shoulder and back this am. She is tolerating diet. Denies n/v/f/c. Objective - Vital Signs/Intake and Output Vital Signs (last 24 hours): Temp Pulse Resp BP Pulse Ox 97.9 F 73 18 108/66 91 L 07/18/18 04:52 07/18/18 04:52 07/18/18 04:52 07/18/18 04:52 07/18/18 04:52 - Medications Medications: Current Medications Piperacillin Sod/Tazobactam (Sod 3.375 gm/ Sodium Chloride) 100 mls @ 100 mls/hr IVPB Q6H [facility]; Protocol Last Admin: 07/18/18 03:06 Dose: 100 mls/hr Ondansetron HCl (Zofran Inj) 4 mg IVP Q6 PRN PRN Reason: Nausea/Vomiting Tramadol HCl (Ultram) 50 mg PO Q6 PRN PRN Reason: Pain, moderate (4-7) - Labs Labs: 07/17/18 08:18 07/17/18 08:18 PT 11.8 Seconds (9.8-13.1) 07/16/18 15:49 INR 1.0 07/16/18 15:49 APTT 33.9 Seconds (25.6-37.1) 07/16/18 15:49 - Constitutional Appears: Well, Non-toxic, No Acute Distress - Head Exam Head Exam: ATRAUMATIC, NORMOCEPHALIC - Eye Exam Eye Exam: EOMI, Normal appearance - ENT Exam ENT Exam: Mucous Membranes Moist - Respiratory Exam Respiratory Exam: NORMAL BREATHING PATTERN. absent: Respiratory Distress - Cardiovascular Exam Cardiovascular Exam: REGULAR RHYTHM. absent: Tachycardia - GI/Abdominal Exam GI & Abdominal Exam: Soft. absent: Distended, Guarding, Tenderness, Rebound Additional comments: incisions CDI w/ dermabond dressing Assessment and Plan - Assessment and Plan (Free Text) Assessment: 47 y/o female s/p lap appy POD1 Plan: -ok for d/c home -f/u in 1-2 weeks call office for appointment -cont reg diet -cont IS use -cont frequent ambulation -can shower -further recs per attending AKWhite PGY4 <Alfie Elder - Last Filed: 07/18/18 09:04> Objective - Vital Signs/Intake and Output Vital Signs (last 24 hours): Temp Pulse Resp BP Pulse Ox 98.2 F 84 20 102/57 L 93 L 07/18/18 08:42 07/18/18 08:42 07/18/18 08:42 07/18/18 08:42 07/18/18 08:42 - Medications Medications: Current Medications Piperacillin Sod/Tazobactam (Sod 3.375 gm/ Sodium Chloride) 100 mls @ 100 mls/hr IVPB Q6H [facility]; Protocol Last Admin: 07/18/18 03:06 Dose: 100 mls/hr Ondansetron HCl (Zofran Inj) 4 mg IVP Q6 PRN PRN Reason: Nausea/Vomiting Tramadol HCl (Ultram) 50 mg PO Q6 PRN PRN Reason: Pain, moderate (4-7) - Labs Labs: 07/17/18 08:18 07/17/18 08:18 PT 11.8 Seconds (9.8-13.1) 07/16/18 15:49 INR 1.0 07/16/18 15:49 APTT 33.9 Seconds (25.6-37.1) 07/16/18 15:49 Assessment and Plan - Assessment and Plan (Free Text) Plan: seen at bedside, agree with resident note. Afebrile, hemodynamically stable. Tolerating diet. ok to dc home f/u in office in 2 weeks
[2018-07-18 08:42] VITALS: BP 102/57; PULSE 84; RESP 20; TEMP 98.2; O2SAT 93
--- NOTE | 2018-07-18 08:57 | CP.PCM.DIS ---
Provider - Provider Date of Admission: 07/16/18 19:59 Attending physician: Rohit Knowles MD Consults: 07/16/18 19:59 Surgery [General Surgery Consult] Stat Comment: Consulting Provider: Thomas Wells Consulting Physician: Thomas Wells Reason for Consult: appendicitis Time Spent in preparation of Discharge (in minutes): 15 Diagnosis - Discharge Diagnosis (1) DVT prophylaxis Status: Acute (2) Appendicitis Status: Acute Hospital Course - Lab Results Lab Results: Micro Results 07/16/18 20:00 Blood-Venous Blood Culture - Preliminary NO GROWTH AFTER 24 HOURS 07/16/18 20:00 Blood-Venous Blood Culture - Preliminary NO GROWTH AFTER 24 HOURS Most Recent Lab Values WBC 10.9 K/uL (4.8-10.8) H 07/17/18 08:18 RBC 3.45 Mil/uL (3.80-5.20) L 07/17/18 08:18 Hgb 10.7 g/dL (12.0-16.0) L 07/17/18 08:18 Hct 31.0 % (34.0-47.0) L 07/17/18 08:18 MCV 90.0 fl (81.0-99.0) 07/17/18 08:18 MCH 31.1 pg (27.0-31.0) H 07/17/18 08:18 MCHC 34.6 g/dL (33.0-37.0) 07/17/18 08:18 RDW 14.0 % (11.5-14.5) 07/17/18 08:18 Plt Count 261 K/uL (130-400) 07/17/18 08:18 MPV 7.3 fl (7.2-11.7) 07/17/18 08:18 Neut % (Auto) 72.8 % (50.0-75.0) 07/17/18 08:18 Lymph % (Auto) 19.7 % (20.0-40.0) L 07/17/18 08:18 [place] % (Auto) 5.2 % (0.0-10.0) 07/17/18 08:18 Eos % (Auto) 1.8 % (0.0-4.0) 07/17/18 08:18 Baso % (Auto) 0.5 % (0.0-2.0) 07/17/18 08:18 Neut # (Auto) 8.0 K/uL (1.8-7.0) H 07/17/18 08:18 Lymph # (Auto) 2.1 K/uL (1.0-4.3) 07/17/18 08:18 [place] # (Auto) 0.6 K/uL (0.0-0.8) 07/17/18 08:18 Eos # (Auto) 0.2 K/uL (0.0-0.7) 07/17/18 08:18 Baso # (Auto) 0.1 K/uL (0.0-0.2) 07/17/18 08:18 PT 11.8 Seconds (9.8-13.1) 07/16/18 15:49 INR 1.0 07/16/18 15:49 APTT 33.9 Seconds (25.6-37.1) 07/16/18 15:49 pO2 25 mm/Hg (30-55) L 07/16/18 18:45 VBG pH 7.35 (7.32-7.43) 07/16/18 18:45 VBG pCO2 50 mmHg (40-60) 07/16/18 18:45 VBG HCO3 24.3 mmol/L 07/16/18 18:45 VBG Total CO2 29.1 mmol/L (22-28) H 07/16/18 18:45 VBG O2 Sat (Calc) 49.7 % (40-65) 07/16/18 18:45 VBG Base Excess 1.2 mmol/L (0.0-2.0) 07/16/18 18:45 VBG Potassium 3.6 mmol/L (3.6-5.2) 07/16/18 18:45 Sodium 134.0 mmol/L (132-148) 07/16/18 18:45 Chloride 103.0 mmol/L (98-107) 07/16/18 18:45 Glucose 82 mg/dL (65-105) 07/16/18 18:45 Lactate 1.3 mmol/L (0.7-2.1) 07/16/18 18:45 FiO2 21.0 % 07/16/18 18:45 Sodium 138 mmol/l (132-148) 07/17/18 08:18 Potassium 3.5 MMOL/L (3.6-5.0) L 07/17/18 08:18 Chloride 98 mmol/L (98-107) 07/17/18 08:18 Carbon Dioxide 27 mmol/L (22-30) 07/17/18 08:18 Anion Gap 17 (10-20) 07/17/18 08:18 BUN 10 mg/dl (7-17) 07/17/18 08:18 Creatinine 0.6 mg/dl (0.7-1.2) L 07/17/18 08:18 Est GFR ( Amer) > 60 07/17/18 08:18 Est GFR (Non-Af Amer) > 60 07/17/18 08:18 Random Glucose 93 mg/dL (65-105) 07/17/18 08:18 Calcium 8.4 mg/dL (8.4-10.2) 07/17/18 08:18 Total Bilirubin 0.3 mg/dl (0.2-1.3) 07/16/18 15:49 AST 32 U/L (14-36) 07/16/18 15:49 ALT 32 U/L (9-52) 07/16/18 15:49 Alkaline Phosphatase 87 U/L (38-126) 07/16/18 15:49 Total Protein 7.7 G/DL (6.3-8.2) 07/16/18 15:49 Albumin 4.2 g/dL (3.5-5.0) 07/16/18 15:49 Globulin 3.5 gm/dL (2.2-3.9) 07/16/18 15:49 Albumin/Globulin Ratio 1.2 (1.0-2.1) 07/16/18 15:49 Lipase 84 U/L (23-300) 07/16/18 15:49 Venous Blood Potassium 3.6 mmol/L (3.6-5.2) 07/16/18 18:45 Urine Color Yellow (YELLOW) 07/16/18 15:49 Urine Clarity Cloudy (Clear) 07/16/18 15:49 Urine pH 5.0 (5.0-8.0) 07/16/18 15:49 Ur Specific [place] 1.024 (1.003-1.030) 07/16/18 15:49 Urine Protein Negative mg/dL (NEGATIVE) 07/16/18 15:49 Urine Glucose (UA) Neg mg/dL (NEGATIVE) 07/16/18 15:49 Urine Ketones Negative mg/dL (NEGATIVE) 07/16/18 15:49 Urine Blood Small (NEGATIVE) 07/16/18 15:49 Urine Nitrate Negative (NEGATIVE) 07/16/18 15:49 Urine Bilirubin Negative (NEGATIVE) 07/16/18 15:49 Urine Urobilinogen 0.2-1.0 mg/dL (0.2-1.0) 07/16/18 15:49 Ur Leukocyte Esterase Neg [place]/uL (Negative) 07/16/18 15:49 Urine RBC (Auto) 5 /hpf (0-3) H 07/16/18 15:49 Urine Microscopic WBC 1 /hpf (0-5) 07/16/18 15:49 Ur Squamous Epith Cells 6 /hpf (0-5) H 07/16/18 15:49 Urine Bacteria Rare (<OCC) 07/16/18 15:49 Blood Type O POSITIVE 07/16/18 15:49 Antibody Screen Negative 07/16/18 15:49 BBK History Checked Patient has bt 07/16/18 15:49 - Hospital Course Hospital Course: pain control surgery cleared pod 1 incentive spirometer ambulation Discharge Exam - Head Exam Head Exam: ATRAUMATIC, NORMAL INSPECTION, NORMOCEPHALIC - Eye Exam Eye Exam: EOMI, Normal appearance, PERRL Pupil Exam: NORMAL ACCOMODATION, PERRL - Respiratory Exam Respiratory Exam: Clear to PA & Lateral, NORMAL BREATHING PATTERN, UNREMARKABLE - Cardiovascular Exam Cardiovascular Exam: REGULAR RHYTHM, RRR, +S1, +S2 - GI/Abdominal Exam GI & Abdominal Exam: Normal Bowel Sounds, Soft, Unremarkable - Extremities Exam Extremities exam: full ROM, normal capillary refill, normal inspection, pedal pulses present - Back Exam Back exam: FULL ROM - Neurological Exam Neurological exam: Alert, CN II-XII Intact, Normal Gait, Oriented x3, Reflexes Normal - Psychiatric Exam Psychiatric exam: Normal Affect, Normal Mood - Skin Skin Exam: Dry, Intact, Normal Color, Warm Discharge Plan - Discharge Medications Prescriptions: Amoxicillin/Clavulanate [Augmentin 875 MG-125 MG] 1 tab PO BID #14 tab oxyCODONE/Acetaminophen [Percocet 5/325 mg Tab] 1 tab PO Q4 PRN #10 tab PRN Reason: pain 6-10 - Follow Up Plan Condition: FAIR Disposition: HOME/ ROUTINE Instructions: Laceration Repair With Glue (DC), Appendectomy, Laparoscopic Surgery (DC) Additional Instructions: follow up with primary MD and dr wells 1 week final dx- appendicitis doing well. no f/c, n/v/d. cleared by surgery for dc. marialuisa po. ambulates well. f/u rmg, rted prn, meds per med rec f/u srgery as directed Referrals: Thomas Wells MD [Staff Provider] - Concetta Wasserman MD [Family Provider] -
--- NOTE | 2018-07-18 20:58 | OP ---
PROCEDURE DATE: 07/17/2018 PREOPERATIVE DIAGNOSIS: Acute cholecystitis. POSTOPERATIVE DIAGNOSIS: Acute cholecystitis. PROCEDURES: Laparoscopic appendectomy, lysis of adhesions. SURGEON: Alfie Elder MD LITHOGRAPH PRINTER: Medhat Terrazas DO ANESTHESIA: General. FINDINGS: The patient had a nonperforated, but inflamed appendix. SPECIMEN: Appendix. ESTIMATED BLOOD LOSS: About 5 mL. POSTOPERATIVE CONDITION: Stable. BRIEF HISTORY: This is a 47-year-old female who presented to the ER with complaints of right-sided abdominal pain, which did not improve over a day period. The patient came to the emergency room and was found to have acute appendicitis on CAT scan. The patient was admitted to the hospital, placed on IV antibiotics, and prepped for the OR. The patient was explained the risks and benefits of procedure, not limited to bleeding, infection, possible damage to surrounding structures. The patient agreed and surgical consent was obtained. DESCRIPTION OF PROCEDURE: On the date of procedure, the patient was brought to the operating room. She was placed in supine position on the operating room table. Bilateral sequential devices were placed to bilateral lower extremities. The patient was then placed under general endotracheal anesthesia, which she tolerated well. Under sterile condition, a Dudley catheter was placed. The patient was not given any further prophylactic antibiotics as she had previously received her last dose prior to the procedure. The patient was then prepped and draped in the usual sterile fashion. After an adequate time-out, we began the procedure making an infraumbilical transverse incision of about 1 cm to the infraumbilical area using an 11 blade. At this point, using an open Hilary technique, a 5-mm port was placed into the intraabdominal cavity. We proceeded to place a 5-mm laparoscope into the abdominal cavity. At which point, we performed a diagnostic laparoscopy, and we did not find any gross pathology and no bowel injury from initial port site insertion. Of note, during the laparoscopy, we did note the patient had adhesions to the lower abdominal wall from her previous abdominal surgeries. At this point, we proceeded to place additional ports, a 12-mm port to the left lower quadrant and a 5-mm port along the suprapubic area. All ports were placed under direct visualization. At this point, given the patient's intra-abdominal adhesions to the abdominal wall, we proceeded to lyse the abdominal wall adhesions using the endoscopic LigaSure. Once the adhesions were successfully lysed, we noted there was adequate hemostasis. We now proceeded to focus our attention to the right lower quadrant, at which point we were able to identify the appendix which was noted to be nonperforated, but inflamed. At this point, we proceeded to isolate the appendix. First, we transected the mesoappendix using the endoscopic LigaSure, and we made sure there was adequate hemostasis at all times at the mesoappendix. We then proceeded to transect the appendix using Endo SARTHAK, 45 mm. The appendix was transected at its base near the cecum. Once the appendix was transected, we placed the appendix in the EndoCatch bag. The appendix was removed from the abdominal cavity through the 12-mm port under direct visualization. At this point, the abdominal cavity was re-insufflated, and we irrigated along the suture line. We made sure there was adequate hemostasis. There was no active bleeding noted. The irrigation was then suctioned out. At this point, we were satisfied with our procedure, and we proceeded to terminate the procedure. At this point, we desufflated the abdominal cavity. All the ports were removed from the abdominal cavity. At this point, we proceeded to close the left lower quadrant incision. The fascia was reapproximated with an 0 Vicryl stitch. The skin incisions were reapproximated with 4-0 Monocryl. Then, Dermabond was applied to all the incisions. At this point, the patient was extubated without any complication. The Dudley catheter was removed. The patient was brought to the recovery room in stable condition. At the end of the procedure, there was an adequate count of all sponges, instruments and needles. Alfie Elder MD
== END 2018-07-18 10:42 | disposition home or self-care (01) | DRG 883 ==
LOC: H.ER 14:14 → H.ERHOLD 19:59 → H.MEDSURG1 22:25
PROVIDERS: ADMIT Family Medicine; ATTEND Family Medicine
PROC: 0DTJ4ZZ Resection of Appendix, Percutaneous Endoscopic Approach (ICD-10-PCS; principal; 2018-07-16)
DX: K35.80 Unspecified acute appendicitis (principal); K59.00 Constipation, unspecified; D64.9 Anemia, unspecified; Z98.82 Breast implant status; Z98.891 History of uterine scar from previous surgery; Z78.0 Asymptomatic menopausal state; K66.0 Peritoneal adhesions (postprocedural) (postinfection); Z98.51 Tubal ligation status